=== PATIENT | female | born 1950 | race Caucasian/White ===

== ENCOUNTER 2016-11-03 19:32 | Emergency (ER) | payer SELFPAY ==
[2016-11-03 19:39] VITALS: BP 185/84
[2016-11-03] MEDS ORDERED: Bupivacaine 0.5% 10 ML SDV INJECT ONE (20:37)
--- NOTE | 2016-11-03 20:38 | EDM.PDOC ---
ED HPI GENERAL MEDICAL PROBLEM - General Chief Complaint: Laceration Stated Complaint: Laceration Time Seen by Provider: 11/03/16 20:00 Source of Information: Reports: Patient, RN Notes Reviewed History Limitations: Reports: No Limitations - History of Present Illness INITIAL COMMENTS - FREE TEXT/NARRATIVE: 66 year old female presents to the ED with laceration to the tip of her left 5th finger. The injury occurred while moving a headboard. She denies crush type injury but has a deep laceration to the finger tip. Her tetanus is up to date. Left Hand Pain Score (Numeric/FACES): 5 - Related Data Allergies Allergy/AdvReac Type Severity Reaction Status Date / Time No Known Allergies Allergy Verified 11/03/16 19:39 Home Meds: Home Meds Cephalexin [Keflex] 500 mg PO TID #21 cap 11/03/16 [Rx] Past Medical History Other Musculoskeletal History: back sugery and bunion surg - Past Surgical History HEENT Surgical History: Reports: Tonsillectomy Female Surgical History: Reports: Hysterectomy Social & Family History - Family History Family Medical History: Noncontributory - Tobacco Use Smoking Status *Q: Never Smoker ED ROS GENERAL - Review of Systems Review Of Systems: See Below Musculoskeletal: Reports: Other (finger pain) Skin: Reports: Wound Neurological: Denies: Numbness, Tingling ED EXAM, SKIN/RASH Exam: See Below Exam Limited By: No Limitations General Appearance: Alert, WD/WN, No Apparent Distress, Anxious Respiratory/Chest: No Respiratory Distress Cardiovascular: Regular Rate, Rhythm Extremities: Other (Deep laceration to left 5th finger. No deformity. Full ROM and modified Alexsander's test is negative for tendon injury.) Neurological: Alert, Normal Cognition, No Motor/Sensory Deficits Skin: Warm, Dry, Normal Color, Other (3cm laceration to left 5th finger. Nail is intact however the laceration starts above and extends along the lateral aspect of the nail, down to the pad of the finger. ) ED SKIN PROCEDURES - Laceration/Wound Repair Left Finger Lac/Wound length In cm: 3 Appearance: Subcutaneous, Linear, Clean Distal NVT: Neuro & Vascular Intact, No Tendon Injury Anesthetic Type: Digital Local Anesthesia - Bupivicaine (Marcaine): 0.5% Plain Local Anesthetic Volume: 5cc Skin Prep: Saline Exploration/Debridement/Repair: Wound Explored, In a Bloodless Field, Explored to Base, No Foreign Material Found Closed with: Sutures Suture Size: 4-0 # of Sutures: 4 Suture Type: Nylon, Interrupted, Simple Sterile Dressing Applied: Nurse Tetanus Status Addressed: Yes Complications: No Progress/Comments: The laceration started proximal to the finger nail and extended along the lateral aspect of the nail and across the pad of the finger. 4 nylon sutures were placed to close the skin. 2 chromium gut sutures were placed in the nail bed and along the lateral aspect of the nail to help secure the skin and nail. There was no finger nail avulsion. Course - Vital Signs Last Recorded V/S: Last Vital Signs Temp 97.8 F 11/03/16 19:37 Pulse 56 L 11/03/16 19:37 Resp 18 11/03/16 19:37 BP 185/84 H 11/03/16 19:37 Pulse Ox 97 11/03/16 19:37 - Orders/Labs/Meds Orders: Active Orders 24 hr Category Date Time Status Fingers Fifth Digit Lt F4 [CR] Stat Exams 11/03/16 20:37 Taken Meds: Medications Discontinued Medications Generic Name Dose Route Start Last Admin Trade Name Freq PRN Reason Stop Dose Admin Bupivacaine HCl 10 ml 11/03/16 20:37 11/03/16 20:44 Sensorcaine-Mpf 0.5% INJECT 11/03/16 20:38 10 ml ONETIME ONE Administration Cephalexin 500 mg 11/03/16 21:23 11/03/16 21:26 Keflex PO 11/03/16 21:24 500 mg ONETIME ONE Administration - Re-Assessments/Exams Free Text/Narrative Re-Assessment/Exam: X-ray reveals a displaced tuft fracture. The skin was closed. Please see procedural notes. Patient will be placed on Keflex due to open tuft fracture. She was placed in an aluminum finger splint in full extension. She will be referred to Dr. Combs with follow-up next week. She was offered pain medication but declined and would prefer to use Ibuprofen. Educated on wound care and f/u instructions. Discharge instructions as documented. Departure - Departure Time of Disposition: 21:22 Disposition: Home, Self-Care 01 Condition: Good Clinical Impression: Laceration Open fracture of tuft of distal phalanx of finger Qualifiers: Encounter type: initial encounter Qualified Code(s): S62.639B - Displaced fracture of distal phalanx of unspecified finger, initial encounter for open fracture - Discharge Information Prescriptions: Cephalexin [Keflex] 500 mg PO TID #21 cap Instructions: Finger Fracture, [id number], Laceration Care, Adult, Easy-to- Read Referrals: PCP,None [Primary Care Provider] - Forms: ED Department Discharge Additional Instructions: Laceration with suture repair Try to keep initial dressing in place for 24 hours After 24 hours, you can gently wash the wound with gentle soap and water Do not submerge the area in water until the sutures are out Apply antibiotic ointment and keep the wound covered for first 2-3 days then leave open to air Keep wound covered if there is a chance it can get dirty Non-dissolvable sutures need to be removed in 7-10 days. [facility] removes sutures for free. Their hours are 8am-6pm Monday through Monday. Return to clinic if signs or symptoms of infection arise, including increased redness, swelling, drainage, or fever Tylenol or Ibuprofen as needed for pain Tuft fracture Wear splint at all times, may remove to shower Rest, ice and elevate Ibuprofen 600-800mg every 8 hours as needed for pain Follow-up with Dr. Combs next week. Call [phone] to schedule - My Orders Last 24 Hours: My Active Orders 11/03/16 20:37 Fingers Fifth Digit Lt F4 [CR] Stat - Assessment/Plan Last 24 Hours: My Active Orders 11/03/16 20:37 Fingers Fifth Digit Lt F4 [CR] Stat
[2016-11-03] MEDS ORDERED: Cephalexin 500 MG Cap PO ONE (21:23)
--- NOTE | 2016-11-04 08:04 | CR ---
Left fifth finger: Four views of the left fifth finger were obtained. Comparison: No previous study. Slightly displaced tuft fracture is seen within the distal phalanx. Soft tissue swelling is identified. No additional bony abnormality is seen. Impression: 1. Small displaced tuft fracture with soft tissue swelling. Diagnostic code #3
== END 2016-11-03 21:45 | disposition home or self-care (01) ==
LOC: JD.ED 19:32
DX: S62.637B Displaced fracture of distal phalanx of left little finger, initial encounter for open fracture (principal); Z90.710 Acquired absence of both cervix and uterus; Z98.890 Other specified postprocedural states; W45.8XXA Other foreign body or object entering through skin, initial encounter; Y93.89 Activity, other specified
CPT/HCPCS: 11760; 12002; 73140; 99283; A9270; 12042; 64450; 99282-25